=== PATIENT | male | born 1985 | race Caucasian/White ===

== ENCOUNTER 2018-04-07 08:33 | Emergency (ER) | payer SELFPAY ==
[2018-04-07] MEDS ORDERED: OXYCODONE-ACETAMINOPHEN 5-325 MG TABLET PO ONE (09:01)
--- NOTE | 2018-04-07 09:42 | RADIOLOGY REPORT (SQ) ---
EXAM DESCRIPTION: RIBS BILATERAL W/PA CXR COMPLETED DATE/TIME: 04/07/2018 9:17 am REASON FOR STUDY: rib pain bilaterally w/ injury COMPARISON: 01/11/2016 TECHNIQUE: Frontal view of the chest and additional views of the bilateral ribs acquired. NUMBER OF VIEWS: Five view. LIMITATIONS: None. FINDINGS: FRONTAL CXR: No pneumothorax. No pleural effusion. No atelectasis or infiltrates. RIBS: Nondisplaced left 7th rib laterally. No lytic or blastic bony lesions. OTHER: No other significant finding. IMPRESSION: 1 No acute pulmonary findings. 2 No evidence of pneumothorax. 3 Non-displaced left 7th rib fracture. COMMENT: SITE OF TRAUMA/COMPLAINT MARKED/STAMP COMPLETED: NO. TECHNICAL DOCUMENTATION: JOB ID: [id number] [employer]- All Rights Reserved Reading location - IP/workstation name: [email or web address]
--- NOTE | 2018-04-07 10:20 | ER Document Report ---
ED General Pain - General Chief Complaint: Rib Pain Stated Complaint: ABDOMINAL PAIN Time Seen by Provider: 04/07/18 08:54 Mode of Arrival: Ambulatory Information source: Patient Notes: Patient is a 32-year-old male who presents to the ER today for bilateral rib pain, worse on the left after he slid down a blowup pool approximately 1 week ago. Patient denies any true injury but states that after sliding down the pull face first on his stomach he started to have some chest pain/bilateral rib pain. 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 Patient denies any shortness of breath or difficulty breathing but admits to pain especially on the left side with deep breathing. Patient denies any other injury, fever, chills. Patient does have a history of a collapsed lung but states that this does not feel the same. TRAVEL OUTSIDE OF THE [place] IN LAST 30 DAYS: No - Related Data Allergies/Adverse Reactions: No Known Allergies Allergy (Verified 04/07/18 08:38) Past Medical History - General Information source: Patient - Social History Smoking Status: Current Every Day Smoker Chew tobacco use (# tins/day): - 45 Frequency of alcohol use: Heavy Drug Abuse: None Family History: None, Reviewed & Not Pertinent Patient has suicidal ideation: No Patient has homicidal ideation: No - Past Medical History Cardiac Medical History: Reports: Hx Hypertension Pulmonary Medical History: Denies: Hx Pneumonia Renal/ Medical History: Denies: Hx Peritoneal Dialysis Past Surgical History: Reports: Hx Orthopedic Surgery - left shoulder - Immunizations Hx Diphtheria, Pertussis, Tetanus Vaccination: No Review of Systems - Review of Systems Constitutional: No symptoms reported EENT: No symptoms reported Cardiovascular: No symptoms reported Respiratory: See HPI Gastrointestinal: No symptoms reported Genitourinary: No symptoms reported Male Genitourinary: No symptoms reported Musculoskeletal: See HPI Skin: No symptoms reported Hematologic/Lymphatic: No symptoms reported Neurological/Psychological: No symptoms reported Physical Exam - Vital signs Vitals: Temp Pulse Resp BP Pulse Ox 97.9 F 96 20 186/120 H 98 04/07/18 09:00 04/07/18 09:00 04/07/18 09:00 04/07/18 09:00 04/07/18 09:00 - Notes Notes: PHYSICAL EXAMINATION: GENERAL: Uncomfortable appearing, but in no acute distress. HEAD: Atraumatic, normocephalic. EYES: Pupils equal round and reactive to light, extraocular movements intact, sclera anicteric, conjunctiva are normal. NECK: Normal range of motion, supple without lymphadenopathy LUNGS: pain with deep breathing, CTAB and equal. No wheezes rales or rhonchi. HEART: Regular rate and rhythm without murmurs ABDOMEN: Soft, anterior bilateral rib tenderness. No guarding, no rebound EXTREMITIES: Normal range of motion, no pitting edema. No cyanosis. NEUROLOGICAL: Cranial nerves grossly intact. Normal sensory/motor exams. PSYCH: Normal mood, normal affect. SKIN: Warm, Dry, normal turgor, no rashes or lesions noted Course - Re-evaluation Re-evalutation: 04/07/18 16:22 Chest x-ray reveals nondisplaced left anterior rib fracture of the seventh rib, no acute pathology otherwise, no pneumothorax. - Vital Signs Vital signs: Temp Pulse Resp BP Pulse Ox 97.8 F 82 18 168/113 H 94 04/07/18 10:23 04/07/18 10:23 04/07/18 10:23 04/07/18 10:23 04/07/18 10:23 Discharge - Discharge Clinical Impression: Left rib fracture Qualifiers: Encounter type: initial encounter Rib fracture type: single rib Fracture type: closed Qualified Code(s): S22.32XA - Fracture of one rib, left side, initial encounter for closed fracture Condition: Stable Disposition: HOME, SELF-CARE Additional Instructions: Return immediately for any new or worsening symptoms. Follow up with primary care provider, call tomorrow to make followup appointment. Prescriptions: Cyclobenzaprine HCl [Flexeril 10 mg Tablet] 10 mg PO TIDP PRN #15 tab PRN Reason: Hydrocodone/Acetaminophen [Conner 5-325 mg Tablet] 1 tab PO Q4 PRN #15 tablet PRN Reason: Forms: Return to Work
[2018-04-07 10:24] VITALS: BP 168/113
== END 2018-04-07 10:24 | disposition home or self-care (01) ==
LOC: ER 08:33
DX: S22.32XA Fracture of one rib, left side, initial encounter for closed fracture (principal); R07.81 Pleurodynia; R07.9 Chest pain, unspecified; X58.XXXA Exposure to other specified factors, initial encounter; F17.200 Nicotine dependence, unspecified, uncomplicated; I10 Essential (primary) hypertension
CPT/HCPCS: 71111; 99283